=== PATIENT | female | born 1945 | race Caucasian/White ===

== ENCOUNTER 2021-08-14 21:34 | Inpatient (IN) | payer MEDICARE ==
[~2021-08-14] VITALS: Ht 157.5 cm; Wt 64.9 kg
[2021-08-14 22:36] LABS: HEMOGLOBIN 14.9 gm/dl (12.3-15.3); RED BLOOD COUNT 4.74 M/UL (4.00-5.10); WHITE BLOOD COUNT 5.9 K/UL (4.5-11.0)
[2021-08-14 23:09] LABS: BUN/CREATININE RATIO 15 (0-10)
[2021-08-15] MEDS ORDERED: PRAVASTATIN SOD20 MG PO (03:11)
[2021-08-15] MEDS ORDERED: VITAMIN D 40400 UNIT PO (03:12)
[2021-08-15] MEDS ORDERED: PROZAC 20 MG CA20 MG PO (03:12)
[2021-08-15] MEDS ORDERED: VITAMIN B COMP1 EAC1 PO (03:12)
[2021-08-17 06:58] LABS: HEMOGLOBIN 14.2 gm/dl (12.3-15.3); RED BLOOD COUNT 4.55 M/UL (4.00-5.10); WHITE BLOOD COUNT 7.1 K/UL (4.5-11.0)
[2021-08-17 07:18] LABS: BUN/CREATININE RATIO 37 (0-10)
[2021-08-17] MEDS ORDERED: AZITHROMYCIN500 MG PO (08:52)
[2021-08-17] MEDS ORDERED: PROVENTIL HFA6.7 GM INH (08:52)
[2021-08-17] MEDS ORDERED: OMNICEF 300 MG300 MG PO (08:52)
[2021-08-17] MEDS ORDERED: MEDROL DOSEPAK 24 MG PO (08:52)
[2021-08-17] MEDS ORDERED: ASPIRIN EC81 MG PO (08:56)
== END 2021-08-17 15:31 | disposition home health service (06) | DRG 193 ==
LOC: ER1 21:34 → CDU 08-15 01:00 → MED SURG 4 08-15 01:00
PROVIDERS: ADMIT Internal Medicine
DX: J18.9 Pneumonia, unspecified organism (principal); J96.01 Acute respiratory failure with hypoxia; Z20.822 Contact with and (suspected) exposure to COVID-19; J43.9 Emphysema, unspecified; I73.9 Peripheral vascular disease, unspecified; F17.210 Nicotine dependence, cigarettes, uncomplicated; Z79.01 Long term (current) use of anticoagulants; Z79.82 Long term (current) use of aspirin; Z90.710 Acquired absence of both cervix and uterus; Z90.49 Acquired absence of other specified parts of digestive tract
CPT/HCPCS: 36415; 36600; 71045; 80048; 80053; 82550; 82553; 82803; 83605; 84484; 85025; 87040; 93005; 94640; 94664; 94760; 96374; 96375; 99285; J0456; J0696; J1650; J2920; J2930; J7030; U0002